=== PATIENT | female | born 1960 | race Caucasian/White ===

== ENCOUNTER 2023-04-16 08:36 | Emergency (ER) | payer BC ==
[2023-04-16 09:41] LABS: Absolute Lymphocytes (CBC) 1.6 K/uL (0.7-4.9); Lymphocytes % 25.1 % (15.3-44.8); MPV 8.7 fL (7.6-11.3); Platelets 259 thou/uL (152-406); RBC Red Blood Cell Count 4.26 M/uL (3.86-4.86)
[2023-04-16 10:02] LABS: Potassium 3.1 mEq/L (3.5-5.1); Troponin High Sensitivity 25.2 pg/mL (<58.9)
[2023-04-16] MEDS ORDERED: POTASSIUM CL SA 10 MEQ TAB PO ONE (10:27)
--- NOTE | 2023-04-16 10:59 | RAD REPORT ---
EXAM DESCRIPTION: CT - Chest For Pe Angio - 04/16/2023 10:22 am CLINICAL HISTORY: DYSPNEA COMPARISON: No comparisons TECHNIQUE: Thin axial CT images of the chest were obtained following administration of 100 mL Isovue 370 IV contrast. Multiplanar reconstructions, and maximum intensity projection reconstructions were generated and reviewed. Exam utilizes a protocol for optimal evaluation of pulmonary arterial tree. All CT scans are performed using dose optimization technique as appropriate and may include automated exposure control or mA/KV adjustment according to patient size. FINDINGS: Pulmonary arteries are normal. No emboli or other suspicious finding. No acute or signific ant aorta findings. No mass or infiltrate in the lung parenchyma. No pleural thickening or pleural effusion. No pneumotho rax. No abnormal mediastinal or hilar masses or lymphadenopathy seen. No chest wall mass or abnormal axill iary lymphadenopathy. IMPRESSION: No evidence of acute central pulmonary emboli. No other acute pulmonary process.
--- NOTE | 2023-04-16 11:20 | ER ---
Nurse's Notes [facility] Name: Zina Padilla Age: 63 yrs Sex: Female : 1960 Arrival Date: 04/16/2023 Time: 08:36 Bed 5 Private MD: Diagnosis: Tachycardia, unspecified Presentation: 04/16 08:53 Chief complaint: Rapid HR up to 208 and palpitations that started at 0730 today. hb Coronavirus screen: At this time, the client does not indicate any symptoms associated with coronavirus-19. Ebola Screen: No symptoms or risks identified at this time. Initial Sepsis Screen: Does the patient meet any 2 criteria? No. Patient's initial sepsis screen is negative. Does the patient have a suspected source of infection? No. Patient's initial sepsis screen is negative. Risk Assessment: Do you want to hurt yourself or someone else? Patient reports no desire to harm self or others. Onset of symptoms was April 16, 2023. 08:53 Method Of Arrival: Ambulatory 08:53 Acuity: LILY 3 hb Triage Assessment: 09:00 General: Appears in no apparent distress. comfortable, Behavior is calm, cooperative. rs5 Respiratory: Respiratory: Reports shortness of breath intermittent SOB on exertion Onset: The symptoms/episode began/occurred this morning. Historical: - Allergies: 08:55 PENICILLINS; hb 08:55 Keflex; hb - Home Meds: 08:56 Synthroid Oral [Active]; Wellbutrin Oral [Active]; Vybrid [Active]; hb - PMHx: 08:55 None; rs5 - PSHx: 08:55 Appendectomy; Cholecystectomy; Gastric Bypass; hb - Immunization history:: Adult Immunizations up to date. - Social history:: Smoking status: Patient denies any tobacco usage or history of. Screenin:00 [facility] ED Fall Risk Assessment (Adult) History of falling in the last 3 months, rs5 including since admission No falls in past 3 months (0 pts) Confusion or Disorientation No (0 pts) Intoxicated or Sedated No (0 pts) Impaired Gait No (0 pts) Mobility Assist Device Used No (0 pt) Altered Elimination No (0 pt) Score/Fall Risk Level 0 - 2 = Low Risk Oriented to surroundings, Maintained a safe environment. Abuse screen: Denies threats or abuse. Nutritional screening: No deficits noted. Tuberculosis screening: No symptoms or risk factors identified. Assessment: 09:00 General: Appears in no apparent distress. comfortable, Behavior is calm, cooperative. rs5 Pain: Denies pain. Neuro: Level of Consciousness is awake, alert, obeys commands, Oriented to person, place, time, situation. Cardiovascular: Denies chest pain, Heart tones S1 S2 present Rhythm is sinus tachycardia. Respiratory: Airway is patent Respiratory effort is even, unlabored, Breath sounds are clear bilaterally. GI: Abdomen is round non-distended, Bowel sounds present X 4 quads. Abd is soft and non tender X 4 quads. : No signs and/or symptoms were reported regarding the genitourinary system. EENT: No signs and/or symptoms were reported regarding the EENT system. Derm: Skin is intact, Skin is pink, warm \\T\\ dry. Musculoskeletal: Circulation, motion, and sensation intact. Range of motion: intact in all extremities. 09:00 General: Pt states "This morning my watch read that I had a HR over 200 and I could rs5 feel my heart beating fast and abnormally and so I came to get checked out. I don't have any chest pain now and I don't feel SOB". 10:41 Reassessment: Patient appears in no apparent distress at this time. Patient and/or iw family updated on plan of care and expected duration. Pain level reassessed. Patient is alert, oriented x 3, equal unlabored respirations, skin warm/dry/pink. 11:21 Reassessment: No changes from previously documented assessment. rs5 Vital Signs: 08:53 BP 146 / 98; Pulse 104; Resp 16; Temp 97.4(TE); Pulse Ox 100% on R/A; Weight 88.9 kg; hb Height 5 ft. 6 in. ; Pain 0/10; 10:41 BP 131 / 78; Pulse 88; Resp 16; Pulse Ox 100% on R/A; iw 11:02 BP 128 / 81; Pulse 85; Resp 16; Pulse Ox 99% on R/A; iw 08:53 Body Mass Index 31.63 (88.90 kg, 167.64 cm) hb 08:53 Pain Scale: Adult hb ED Course: 08:39 Patient arrived in ED. mr 08:42 Erasmo Gillette DO is Attending Physician. ms3 08:55 Triage completed. hb 08:58 Arm band placed on. hb 09:00 Patient has correct armband on for positive identification. Placed in gown. Bed in low rs5 position. Call light in reach. Side rails up X2. 09:07 Maurice Ortiz, RN is Primary Nurse. rs5 09:22 Inserted saline lock: 22 gauge in left antecubital area, using aseptic technique. Blood rs5 collected. 10:23 CT Chest For PE Angio In Process Unspecified. EDMS 11:21 No provider procedures requiring assistance completed. rs5 11:39 Provided Education on: . iw 11:39 IV discontinued, intact, bleeding controlled, No redness/swelling at site. Pressure iw dressing applied. Administered Medications: 10:40 Drug: Potassium Chloride PO Liquid 40 mEq PO once Route: PO; iw 11:22 Follow up: Response: No adverse reaction rs5 Medication: 11:20 VIS not applicable for this client. rs5 Outcome: 11:19 Discharge ordered by MD. ms3 11:39 Discharged to home ambulatory, with family, iw 11:39 Condition: good 11:39 Discharge instructions given to patient, family, Instructed on discharge instructions, follow up and referral plans. Demonstrated understanding of instructions, follow-up care, 11:39 Patient left the ED. iw Signatures: Dispatcher [employer] EDLA Rosenda Gold, Reg Reg Nicci Garcia, JANN RN Michelle Hong, JANN RN Erasmo Gillette, DO DO ms3 Maurice Ortiz, RN RN rs5 Corrections: (The following items were deleted from the chart) 08:58 08:55 Allergies: No Known Allergies; hb hb 10:43 10:41 Pulse 88bpm; Resp 16bpm; Pulse Ox 100% RA; iw iw
--- NOTE | 2023-04-16 11:20 | EDPHYS ---
Physician Documentation [facility] Name: Zina Padilla Age: 63 yrs Sex: Female : 1960 Arrival Date: 04/16/2023 Time: 08:36 Bed 5 Private MD: ED Physician Erasmo Gillette HPI: 04/16 08:58 This 63 yrs old Female presents to ER via Ambulatory with complaints of fast heart ms3 rate, Shortness Of Breath. 08:58 63-year-old female with past medical history of hypothyroidism, depression [place] [facility] [place] rapid heart rate began at 7:30 AM. Patient states her initial heart rate was 178 increasing up to 208 bpm. Patient states during the episode she did have shortness of breath. Patient denies pain at this time. Patient denies nausea, vomiting, shortness of breath at this time. Historical: - Allergies: 08:55 PENICILLINS; hb 08:55 Keflex; hb - Home Meds: 08:56 Synthroid Oral [Active]; Wellbutrin Oral [Active]; Vybrid [Active]; hb - PMHx: 08:55 None; rs5 - PSHx: 08:55 Appendectomy; Cholecystectomy; Gastric Bypass; hb - Immunization history:: Adult Immunizations up to date. - Social history:: Smoking status: Patient denies any tobacco usage or history of. ROS: 08:58 Constitutional: Negative for fever, and chills. Neck: Negative for injury, pain, and ms3 swelling, 08:58 MS/Extremity: Negative for injury and deformity, Skin: Negative for injury, rash, and discoloration, 08:58 Cardiovascular: Positive for palpitations, 08:58 Respiratory: Positive for shortness of breath, 08:58 Abdomen/GI: 08:58 All other systems are negative, Exam: 08:58 Constitutional: This is a well developed, well nourished patient who is awake, alert, ms3 and in no acute distress. Head/Face: Normocephalic, atraumatic. Chest/axilla: Normal chest wall appearance and motion. Nontender with no deformity. 08:58 Skin: Warm, dry with normal turgor. Normal color with no rashes, no lesions, and no evidence of cellulitis. 08:58 Cardiovascular: Rate: tachycardic, Rhythm: regular, Pulses: no pulse deficits are appreciated, 10:00 ECG was reviewed by the Attending Physician. ms3 Vital Signs: 08:53 BP 146 / 98; Pulse 104; Resp 16; Temp 97.4(TE); Pulse Ox 100% on R/A; Weight 88.9 kg; hb Height 5 ft. 6 in. ; Pain 0/10; 10:41 BP 131 / 78; Pulse 88; Resp 16; Pulse Ox 100% on R/A; iw 11:02 BP 128 / 81; Pulse 85; Resp 16; Pulse Ox 99% on R/A; iw 08:53 Body Mass Index 31.63 (88.90 kg, 167.64 cm) hb 08:53 Pain Scale: Adult hb MDM: 08:57 Patient medically screened. ms3 08:58 Differential diagnosis: Anemia Arrythmia. ms3 11:19 Data reviewed: vital signs, nurses notes, lab test result(s), EKG, radiologic studies, ms3 CT scan, and as a result, I will discharge patient. Independent interpretation of the following test(s) in the Emergency Department EKG: See my EKG interpretation above CT Scan: My interpretation is CT chest for pulmonary embolism images reviewed by me do not reveal pulmonary embolism. Counseling: I had a detailed discussion with the patient and/or guardian regarding the historical points, exam findings, and any diagnostic results supporting the discharge/admit diagnosis, lab results, radiology results, the need for outpatient follow up, to return to the emergency department if symptoms worsen or persist or if there are any questions or concerns that arise at home. Special discussion: I discussed with the patient/guardian in detail that at this point there is no indication for admission to the hospital. It is understood, however, that if the symptoms persist or worsen the patient needs to return immediately for re-evaluation. ED course: Discussed labs, EKG, CT findings with patient. Patient to follow-up as discussed. Patient understands agrees with plan. All questions were answered. Return precautions discussed include worsening symptoms, or any other concerns. On reevaluation patient's heart rate improved, symptoms improved, patient is alert and oriented x 4, no apparent distress, nontoxic-appearing, ambulatory emergency department, speaking full sentences. 04/16 08:58 Order name: Basic Metabolic Panel; Complete Time: 10:05 ms3 04/16 08:58 Order name: CBC with Diff; Complete Time: 10:05 ms3 04/16 08:58 Order name: Troponin HS; Complete Time: 10:05 ms3 04/16 08:58 Order name: CT Chest For PE Angio; Complete Time: 11:08 ms3 04/16 08:58 Order name: Cardiac monitoring; Complete Time: 09:32 ms3 04/16 08:58 Order name: EKG - Nurse/Tech; Complete Time: 09:32 ms3 04/16 08:58 Order name: IV Saline Lock; Complete Time: 09:32 ms3 04/16 08:58 Order name: Labs collected and sent; Complete Time: 09:32 ms3 04/16 08:58 Order name: O2 Per Protocol; Complete Time: 09:32 ms3 04/16 08:58 Order name: O2 Sat Monitoring; Complete Time: :32 ms3 EC:00 Rate is 103 beats/min. Rhythm is regular. QRS [place] is Normal. [place] interval is normal. ms3 Clinical impression: NSR w/ Non-specific ST/T Changes. Interpreted by me. Reviewed by me. Administered Medications: 10:40 Drug: Potassium Chloride PO Liquid 40 mEq PO once Route: PO; iw 11:22 Follow up: Response: No adverse reaction rs5 Disposition Summary: 04/16/23 11:19 Discharge Ordered Notes: Location: Home ms3 Condition: Stable ms3 Diagnosis - Tachycardia, unspecified ms3 Followup: ms3 - With: Private Physician - When: 2 - 3 days - Reason: Recheck today's complaints Discharge Instructions: - Discharge Summary Sheet ms3 - Sinus Tachycardia ms3 Forms: - Medication Reconciliation Form ms3 - Thank You Letter ms3 - Antibiotic Education ms3 - Prescription Opioid Use ms3 - Patient Portal Instructions ms3 - Leadership Thank You Letter ms3 Signatures: Dispatcher [employer] Nicci Pollock RN RN iw Michelle Hong RN RN hb Sims, Marcus, DO DO ms3 Maurice Ortiz, RN RN rs5 Corrections: (The following items were deleted from the chart) 08:58 08:55 Allergies: No Known Allergies; hb hb
[2023-04-16 11:45] VITALS: TEMP 97.4
[2023-04-16 11:48] VITALS: BP 128/81; O2SAT 99
--- NOTE | 2023-04-17 13:45 | EKG ---
Test Date: 2023-04-16 Test Time: 09:27:51 [employer] Operator: SAMMY MEASUREMENT RESULTS: Intervals: Rate: 103 WA: 190 QRSD: 90 QT: 336 QTc: 440 [place]: P: 84 WA: 190 QRS: 68 T: 70 INTERPRETIVE STATEMENTS: Sinus tachycardia Septal infarct, age undetermined Abnormal ECG Compared to ECG 02/25/2008 06:33:29 Myocardial infarct finding now present Sinus rhythm no longer present Electronically Signed On 04-17-23 13:40:50 BPM ARCHITECT by Ric Cheng
== END 2023-04-16 11:39 | disposition home or self-care (01) ==
LOC: ER 08:36
DX: R00.0 Tachycardia, unspecified (principal); E03.9 Hypothyroidism, unspecified; F32.A Depression, unspecified; Z88.0 Allergy status to penicillin; Z88.1 Allergy status to other antibiotic agents
CPT/HCPCS: 93005; 85025; 80048; 36415; 84484; 71275; 99284; Q9967